=== PATIENT | female | born 1965 | race Caucasian/White ===

== ENCOUNTER 2025-04-21 12:35 | Emergency (ER) | payer OTHER, SELFPAY ==
[2025-04-21 12:37] VITALS: BP 148/101; PULSE 91; RESP 18; TEMP 36.1; O2SAT 100
[2025-04-21 13:15] VITALS: BP 130/80; PULSE 80; O2SAT 100
--- NOTE | 2025-04-21 13:33 | EKG12_ITS ---
Test Reason : Blood Pressure : */* mmHG Vent. Rate : 78 BPM Atrial Rate : 78 BPM P-R Int : 140 ms QRS Dur : 84 ms QT Int : 398 ms P-R-T Axes : 45 -6 23 degrees QTcB Int : 453 ms Normal sinus rhythm Normal ECG Confirmed by LINUS NUNN, BARB ([id number]), science editor NELSON TRAVIS ([id number]) on 04/22/2025 8:47:17 AM Referred By: Confirmed By: BARB BARRIGA MD
[2025-04-21 13:49] LABS: Hematocrit 41.7 % (37-47); Hemoglobin 14.0 g/dL (12.0-15.0); Immature Granulocytes Count 0.020 X10^3/uL (0.0-0.0); Mean Corp Hgb Conc 33.6 g/dL (32-36); Mean Corpuscular Volume 84.4 fL (81-99); Mean Platelet Vol. 12.8 fl (6.2-12.0); NRBC Flagged by Analyzer 0 % (0-5); Platelet Count 225 K/mm3 (150-450); RBC Distribution Width CV 12.9 % (11.6-14.6); RBC Distribution Width SD 39.6 fl (35.1-43.9); Red Blood Count 4.94 M/mm3 (4.2-5.4); White Blood Count 7.5 K/mm3 (4.4-11.0)
[2025-04-21 14:22] LABS: Mucous, Urine 0 SEEN /hpf (<or=2+)
[2025-04-21 14:39] LABS: AST(SGOT) 38 U/L (<=31); Alanine Aminotransfer ALT/SGPT 48 U/L (<=34); Albumin, Serum 4.1 g/dL (3.4-4.8); Alkaline Phosphatase 29 U/L (35-104); Anion Gap 12 (5-15); BUN 15 mg/dL (4-19); BUN/Creat Ratio 24.1 RATIO (10-20); Calcium,Total 9.6 mg/dL (7.6-11.0); Carbon Dioxide 22.6 mmol/L (21.0-32.0); Chloride 105 mmol/L (98-108); Globulin 2.7 g/dL (2.2-4.2); Glucose 103 mg/dL (70-99); Potassium 3.8 mmol/L (3.3-5.1)
[2025-04-21 14:44] LABS: Color, Urine Yellow (Yellow); Glucose, Dipstick Normal (Normal); Ketone-Dipstick Negative (Negative); Leukocyte Esterase-Dipstick Negative /ul (Negative); Nitrite-Dipstick Negative (Negative); Occult Blood-Urine 10 /ul (Negative); Protein-Dipstick 15 mg/dl (Negative); Specific Gravity, Urine 1.020 (1.002-1.030); Urine Bilirubin Dipstick Negative (Negative)
[2025-04-21 15:00] VITALS: BP 128/78; PULSE 80; O2SAT 100
[2025-04-21 15:32] LABS: Troponin T High Sensitivity 7 ng/L (<=14)
[2025-04-21 15:34] LABS: Squamous Epithelial Cells - UA 5-10 SEEN /hpf (5-10)
[2025-04-21 15:37] LABS: Red Blood Cells-Urine 0-5 SEEN /hpf (0-5)
--- NOTE | 2025-04-21 16:49 | EDS_ITS ---
HPI History of Present Illness Chief Complaint: Confusion Informant: patient Narrative Narrative: Patient is a 59-year-old female with history of hypertension and anxiety presented with worsening confusion, generalized weakness and dizziness. States her mother in mid March (approximately a month ago). She reported tenuous relationship with her mother and has had a hard time dealing with. She states this morning she was so weak that she felt she was going to . The past week she has only been sleeping and has not been eating much. Has been drinking lots of water. She denies any abdominal pain. She denies any thoughts of self-harm but is afraid that if she does sleep that she will . 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 Her was able to convince her to take her citalopram this morning. She is not taking her citalopram or valsartan. Denies any auditory visual hallucinations but has had a hard time concentrating. Patient is with her daughter initiated that her is also at the bedside. Patient also reports that she cold turkey stop smoking, stopped caffeine, THC and alcohol. She notes that she has not had a drink in 2 weeks. She denies heavy drinking before and states to just drink intermittently. PFSH PFSH Medical History no medical history Allergy/AdvReac Type Severity Reaction Status Date / Time azithromycin (From z-pack) Allergy Unknown Other Verified 04/21/25 12:37 Family History no significant family his Surgical History no surgical history Social History Smoking Status: Current every day smoker tobacco type: cigarettes ROS ROS ED Constitutional Constitutional ED: Reports other Details: Poor appetite, insomnia ; Denies chills or fever(s) Eyes Eyes: Denies change in vision Cardiovascular Cardiovascular: Reports chest pain and other Details: Reports prior chest pain?denies any now Respiratory/Chest Respiratory/Chest: Denies cough or dyspnea Musculoskeletal Musculoskeletal: Denies arthralgias or myalgias Integumentary Denies rash Neurologic Neurologic: Reports paresthesias, weakness and other Details: Prior tingling to her bilateral feet?states she was concerned she was having a stroke ; Denies headache(s) Psychiatric Psychiatric: Reports anxiety and depression; Denies suicidal ideation or suicidal thoughts Hematologic/Lymphatic Hematologic/Lymphatic: Denies easy bleeding or easy bruising EXAM Physical Exam Const Vital Signs: 04/21/25 12:37 04/21/25 13:15 04/21/25 13:15 Temperature 96.9 F L Temperature Source Oral Pulse Rate 91 80 Respiratory Rate 18 Respiratory Effort Normal Non-Labored Respiratory Pattern Normal Blood Pressure 148/101 H 130/80 H Blood Pressure Mean 116 96 Pulse Ox 100 100 Oxygen Delivery Method Room Air 04/21/25 15:00 Temperature Temperature Source Pulse Rate 80 Respiratory Rate Respiratory Effort Respiratory Pattern Blood Pressure 128/78 H Blood Pressure Mean 94 Pulse Ox 100 Oxygen Delivery Method Positive well nourished and well developed General Appearance ED: well developed and NAD HEENT Reports moist mucous membranes Negative for trauma Eyes PERRL and EOMs intact bilaterally Neck supple and no JVD Neck Narrative: No meningeal signs Chest Wall inspection of chest normal Resp normal respiratory effort and clear to auscultation bilaterally Cardio regular rate and regular rhythm GI normal to inspection, nondistended, normoactive bowel sounds Extremity normal to inspection Extremity Narrative: Varicose vein of the right posterior calf. Soft, no overlying redness or infectious symptoms General Extremety ED: Negative for edema General Extremity: Negative for edema Neuro oriented x3 and CN's II-XII intact bilaterally Sensorium / Orientation: alert Motor Exam: Negative for general weakness Psych Psych Narrative: Labile mood. No auditory visual hallucinations. She does have slightly manic speech and jumps topic a lot but does come back to initial topic and is able to answer questions eventually. Is insightful about what is going on. Mood & Affect: depressed, anxious and tearful Skin no rashes or lesions noted and no wounds MDM MDM MDM Narrative Medical decision making narrative: Patient evaluated for multiple vague complaints including weakness, confusion and dizziness. She has been as her mother whom sounds like she had a very difficult relationship with about a month ago and the seems of triggered her symptoms. Differential includes psychosis, depression, hyponatremia, encephalopathy/infection (lower suspicion is to report any fevers), hyperthyroidism, urinary tract infection. She does report prior chest pain as well as obtain EKG and troponin looking for signs of ACS or arrhythmia. No focal neurologic deficits I do not think she requires a CT of the brain. She reports bilateral tingling of her feet but that does not sound like a stroke I do not think she needs CT of the brain. Patient is also in agreement with this. Does see that patient has a lot of family support at home. Her workup shows a normal CBC. Her CMP shows a very mild transaminitis. There is nothing that is consistent with any acute metabolic process however. Her urinalysis is most consistent with contamination but there is 2+ bacteria. Will send off her urine culture I do not think she requires antibiotics for this at this time. TSH is quite low at 0.179. Will add on T3-T4. Possible that thyroid abnormality could be causing her symptoms. Patient is evaluated social welfare research worker in the ER as well. We are in agreement that patient likely does have some underlying psychiatric condition but due to her lack of HI/SI and strong outpatient social supports feel that she is a good candidate for outpatient treatment. Will be given resources for intensive outpatient. And I am amenable to prescribing an anxiolytic/sleep aid for the short-term. Family feels comfortable monitoring this and dispensing it. Patient signed out to oncoming physician pending T3-T4 results. If these are grossly abnormal patient likely will require discussion with endocrinology. Lab Data Attestation: I reviewed the patient's lab results. Labs: Laboratory Results - last 24 hr 04/21/25 04/21/25 04/21/25 13:07 13:57 14:20 WBC 7.5 RBC 4.94 Hgb 14.0 Hct 41.7 MCV 84.4 MCH 28.3 MCHC 33.6 RDW Std Deviation 39.6 RDW Coeff of Soraya 12.9 Plt Count 225 MPV 12.8 H Immature Gran % (Auto) 0.300 Neut % (Auto) 55.7 Lymph % (Auto) 33.2 [place] % (Auto) 8.0 Eos % (Auto) 1.9 Baso % (Auto) 0.9 Absolute Neuts (auto) 4.2 Absolute Lymphs (auto) 2.50 Nucleated RBC % 0 Sodium Cancelled 140 Potassium Cancelled 3.8 Chloride Cancelled 105 Carbon Dioxide Cancelled 22.6 Anion Gap Cancelled 12 BUN Cancelled 15 Creatinine Cancelled 0.61 L Estim Creat Clear Calc Cancelled Est GFR (MDRD) Non-Af Cancelled 102 BUN/Creatinine Ratio Cancelled 24.1 H Glucose Cancelled 103 H Calcium Cancelled 9.6 Total Bilirubin Cancelled 0.42 AST Cancelled 38 H ALT Cancelled 48 H Alkaline Phosphatase Cancelled 29 L Troponin T High Sens 7 Total Protein Cancelled 6.8 Albumin Cancelled 4.1 Globulin Cancelled 2.7 Albumin/Globulin Ratio Cancelled 1.5 TSH Cancelled 0.179 L Urine Color Yellow Urine Clarity Sl. Cloudy Urine pH 6.0 Ur Specific [place] 1.020 Urine Protein 15 H Urine Glucose (UA) Normal Urine Ketones Negative Urine Occult Blood 10 H Urine Nitrite Negative Urine Bilirubin Negative Urine Urobilinogen Normal Ur Leukocyte Esterase Negative Urine RBC 0-5 SEEN Urine WBC 0-5 SEEN Ur Squamous Epith Cells 5-10 SEEN Amorphous Sediment 1+ Urine Bacteria 2+ Urine Mucus 0 SEEN Rhythm Strip Rhythm Strip: Sinus Rhythm Rate: 78 Ectopy: None EKG Initial EKG: Attestation: I personally reviewed and interpreted this EKG as follows: Interpretation: Sinus Rhythm Comments: Normal sinus rhythm rate of 78 bpm Normal axis Normal intervals Normal ST segments Discharge Plan Triage Chief Complaint: Confusion Other Complaint: Weakness ED Provider: Teodora Alberto Dx/Rx/DC Orders Primary Care Provider: Jhon Torres Referrals: Jhon Torres MD [Primary Care Provider] - Print Language: Malian
[2025-04-21 17:00] VITALS: BP 128/70; PULSE 80; O2SAT 100
[2025-04-21 17:14] VITALS: BP 127/98; BP 130/100; BP 147/96; PULSE 77; PULSE 85; PULSE 95
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
[2025-04-21 17:23] LABS: Free T3 4.3 pg/mL (2.18-3.98)
[2025-04-21 18:03] LABS: Troponin T High Sens 2 HR 7 ng/L (<=14)
[2025-04-21 18:09] VITALS: BP 128/70; PULSE 80; RESP 18; TEMP 36.6; O2SAT 100
--- NOTE | 2025-04-22 15:27 | CM.ED ---
Social Work SW contacted patient as a follow up from yesterdays ED visit and care plan. Patient has just finished her admission assessment at [facility]. Patient was extremely positive about her next steps and was thankful for the services provided. Patient became tearful and stated this is the first time she has felt safe in many years and was so thankful for the help. SW encouraged patient to call or come back to the ED should she feel she needs additional assistance. No further needs identified at this time. Adenike Zayas, MERCANTILE AGENT, ACOUSTIC WARFARE ANALYST
== END 2025-04-21 18:09 | disposition home or self-care (01) ==
PROVIDERS: Emergency Provider Emergency Medicine; PCP Family Medicine; Visit Provider Emergency Medicine
DX: R41.0 Disorientation, unspecified (principal); R53.1 Weakness; Z87.891 Personal history of nicotine dependence; I10 Essential (primary) hypertension
CPT/HCPCS: 80053; 81001; 84439; 84443; 84481; 84484; 85025; 93005; 99284; A4216

== ENCOUNTER 2025-05-01 13:25 | Outpatient (RCR) | payer OTHER, SELFPAY ==
--- NOTE | 2025-05-01 15:15 | BH.MDN ---
Multi-Disciplinary Note Note 60-min Individual: Time Started:: 14:00 Date: 05/01/25 Purpose of session/treatment goals addressed:: Purpose of session was to complete paperwork, review any changes in symptomology, as well as determine appropriateness for group setting. Eye Contact:: Good Motor Activity:: Restless Appearance:: Casual Speech:: Pressured, Tangential and Rambling Mood:: Euthymic and Irritable Affect:: Labile Thoughts:: Racing and Flight of ideas Staff Interventions:: motivational interviewing, rapport building, completed risk assessment / safety planning (cssrs assessment) and other (assessed for group appropriateness, basic hx gathering) Client Response:: Pt receptive of session, engaged at times but often easily distracted by own thoughts/ideas. Pt struggled significantly with remaining on topic and completing paperwork throughout session. Pt?s present and often provided collateral information or discredited pt?s statements during the interview. Pt fixated on a romi she brought in with her and often assigned varying significance to it, for example stating that it represents the day her sister was born or was a sign that she is going to get the help she needs. Pt?s reports her sx started ~3.5 weeks ago after learning on social media that her mother had and pt was written out of the will. Shares that they had been estranged for 14 years after pt?s mother minimized pt?s new breast cancer diagnosis. At that time, pt attempted to gather more information from her sister whom she is also estranged from however this did not go over well and ended in conflict. Pt provided some information throughout information gathering but would often interrupt with illogical statements or observations. Pt?s reports that pt has not been eating unless told to do so, is sleeping about 3-5 hours a night but often wakes up and wanders outside, has been recounting past trauma, is starting multiple projects around the house and often gets distracted. Noted that pt is usually very clean and organized but has been scattered the past month. Shared that she impulsively bought a new car and phone as well. Reports this change in pt?s behaviors has been difficult on him physically and emotionally. His adult children have been stopping by to help when possible. Given pt?s erratic behavior she is not going to begin the group portion of tx until more stabilized. Will meet with program psychiatrist with her and daughter tomorrow morning and follow-up from there next week to assess stability. Risks/Concerns:: Pt denies suicidal ideation, plan, or intent as of this date. Symptoms of irritability, senthil, and possible psychosis do however appear to be more severe than at initial intake. Varying ability to focus. Pt family is looking after her due to sx severity. She is scheduled for psychiatry tomorrow morning to further determine appropriateness. Progress Toward Goals/Plan:: No progress noted as it is pt's first day in tx and this session was focused on information gathering and assessing current sx. Pt had significant difficulties in maintaining focus throughout. Pt present throughout and reports pt sx have been worsening. Pt endorsing labile mood, racing thoughts, pressured speech, starting multiple tasks, impulsivity, lack of sleep, grandiose thoughts, and some auditory hallucinations. Pt reports sx have been ongoing for the past month. Denies wanting pt to be hospitalized and pt is adamant against this. Reports he will be able to aid in maintaining safety until pt meets with program psychiatrist tomorrow to discuss plan of tx further. Time Stopped:: 15:00
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
--- NOTE | 2025-05-02 07:57 | BH.DR.ITP ---
Initial Treatment Plan Patient Information Visit Information: ADMISSION DATE: 05/02/2025 EXPECTED LOS: 4-6 weeks Problems/Symptoms Problem #1:: Sandy Symptom:: grandiosity, flight of ideas, delusional thought, poor sleep, agitation Symptom:: anxiety Problem #2:: restlessness, nervousness
== END 2025-05-04 23:59 ==
LOC: BHIOP 13:25
PROVIDERS: PCP Family Medicine; Referring Provider Student in an Organized Health Care Education/Training Program; Visit Provider Student in an Organized Health Care Education/Training Program
DX: F31.64 Bipolar disorder, current episode mixed, severe, with psychotic features (principal)
CPT/HCPCS: S9480; 90837

== ENCOUNTER 2025-05-29 08:00 | Outpatient (RCR) | payer OTHER, SELFPAY ==
--- NOTE | 2025-05-29 10:15 | BH.SGPN.GN ---
Behaviors/Verbalizations/Mental Status: [] Eye contact is good. Motor activity is appropriate. Appearance is casual. Speech is Appropriate. Mood is dysthymic. Affect is congruent. Thoughts are linear and logical. No evidence of psychosis. Client Response/Progress/Benefit: [] Client engaged during group session as evidenced by contributions during group discussions, appearing to listen to others, and taking notes. Client engaged in discussion about barriers that keep people from having difficult conversations. Group identified potential reasons individuals avoid difficult conversations which included; feeling uncomfortable, reaction of others, fear, and avoiding conflict. Group also identified benefits to having crucial conversations. Pt identified things they do that impact their communication as mind reading or shutting down. Client seemed to benefit from increased awareness and education about importance of having difficult conversations and recognizing the impact of avoiding such conversations. Client to continue IOP to prevent decompensation, increase healthy coping, and improve functioning. Narrative Note: []
--- NOTE | 2025-05-29 11:15 | BH.SGPN.GN ---
Behaviors/Verbalizations/Mental Status: []Pt alert and oriented, neatly dressed and groomed. Eye contact good. Motor activity appropriate. Speech within normal limits. Affect constricted, mood euthymic and anxious. Thoughts linear, logical, no signs of hallucinations or delusions. Client Response/Progress/Benefit: [] Pt was an active participant, engaged in activities and discussion. Pt able to identify ways they negatively contribute to crucial conversations and pt was engaged during psychoeducation of the different ways to build interpersonal effectiveness skills. Pt and peers practiced mirroring and active listening in partners. Group reviewed [employer] and used the handout to help map out how they would like a crucial conversation in their life to go. Pt shared that she benefited from learning the challenges of putting off conversations and how this causes more stress. Pt appeared to benefit from learning and practicing interpersonal effectiveness skills. Pt will continue IOP tx to prevent decompensation, improve distress tolerance, and improve daily functioning. Narrative Note: []
--- NOTE | 2025-05-29 15:22 | BH.MDN ---
Multi-Disciplinary Note Note 45-min Individual: Time Started:: 09:00 Date: 05/29/25 Purpose of session/treatment goals addressed:: To gather information on pt's current stressors, symptoms, triggers, history, and tx goals. Another goal was to build rapport and provide emotional support. Eye Contact:: Good Motor Activity:: Appropriate Appearance:: Neat and Casual Speech:: Appropriate Mood:: Anxious Affect:: Congruent Thoughts:: Linear, Logical and No evidence of hallucinations/delusions noted Staff Interventions:: motivational interviewing, psychoeducation on: (ACES), rapport building, strengths perspective and treatment planning Client Response:: Pt responded well to session, open to meeting with therapist. Pt shared that since d/c from inpatient hospitalization she has felt more stable and capable of managing her emotions. Noted some continued struggles with concentration, forgetfulness, and sleep. Pt went on to describe shame and embarrassment surrounding her recent manic episode, noting the most difficult aspect is not remembering what she did or said during the episode. Pt went on to indicate that fear of losing her memory and struggling with cognition is a major stressor of hers as she is a very independent person. Expressed struggling with depending on others and has been having a hard time with her family?s ongoing concerns since hospital d/c. Pt explained that her only just now let pt drive independently and that she feels her adult children and have been monitoring her every mood since d/c. Pt reports understanding their concern and is grateful for the support, but would like to get back to feeling like herself. She is now connected with Dr. Ocasio at [facility] for outpatient medication management; however, does not have an individual outpatient counselor. While in IOP tx, pt reports that she would like to understand how her past childhood trauma is impacting her as an adult, address ?severe abandonment issues? and how these manifest in current relationships, as well as work on understanding and managing bipolar related sx. Pt receptive to treatment planning including psychoeducation on adverse childhood experiences. Risks/Concerns:: Pt denies any suicidal ideation, plan, or intent. Pt denies any thoughts of . Progress Toward Goals/Plan:: Pt's first day of IOP tx and pt shared looking forward to learning new skills. Pt shared she enjoys listening to peers talking about their own experiences. Pt stated she wants to work on understanding trauma and attachment and better coping with her mental health sx. Pt and therapist discussed goals to help pt get back to her usual functioning and improve mood stability. Pt will continue IOP tx to gain healthy coping skills, improve daily functioning, and increase distress tolerance. Time Stopped:: 09:40
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
--- NOTE | 2025-05-30 07:37 | BH.DR.ITP ---
Initial Treatment Plan Patient Information Visit Information: ADMISSION DATE: 05/30/2025 EXPECTED LOS: 4-6 weeks Problems/Symptoms Problem #1:: Sandy Symptom:: delusional thought, hyperactivity, racing thoughts Problem #2:: anxiety Symptom:: nervousness, restlessness, changes in sleep pattern
--- NOTE | 2025-05-30 09:05 | BH.SGPN.GN ---
Behaviors/Verbalizations/Mental Status: [] Eye contact is good. Motor activity is appropriate. Appearance is casual. Speech is Appropriate. Mood is euthymic. Affect is full. Thoughts are linear and logical. No evidence of psychosis. Reviewed daily check in sheet and pt denies SI, plan, or intent as of this date 05/30/25. Client Response/Progress/Benefit: [] Pt was an active participant in group discussions. Attentive. Daily symptom tracker notes 1/5 for anxiety and 0/5 for depression, pt positive throughout check-in. Did well to identify 2 mental health wins, which included being here and more stable than when trying to begin the program a month ago. Expressed gratitude for her family for the support while experiencing a manic episode. Additional win noted as purchasing a trike to begin exercising more often;however, noted this is also a stressor as she is worried she will fall and injure herself. Appeared to benefit from provided support, encouragement, and feedback. Will continue IOP tx to improve mood stability, develop healthy coping repertoire, and prevent decompensation. Narrative Note: []
--- NOTE | 2025-05-30 10:10 | BH.SGPN.GN ---
Behaviors/Verbalizations/Mental Status: []Eye contact is good. Motor activity is appropriate. Appearance is casual. Speech is Appropriate. Mood is content. Affect is congruent. Thoughts are linear and logical. No evidence of psychosis. Client Response/Progress/Benefit: []Pt was an active participant in group discussion. Engaged and attentive during psychoeducation and interactive discussion on coping skills, why people use unhealthy coping skills, how to replace unhealthy coping skills, and internal vs external coping skills. Attentive as peers came up with list of unhealthy coping skills. Pt reported personally, they tend to either distract or avoid. Group discussed the effects of maladaptive coping skills on mental health. Benefited from increased understanding of unhealthy coping skills and the need for developing healthy internal and external coping skills. Actively participated during experiential group activity and was able to related this activity to group topic. Will continue in IOP to promote healthy thinking patterns, apply healthy coping skills, and promote mood stability. Narrative Note: []
--- NOTE | 2025-05-30 11:00 | BH.NA_ITS ---
Physical Data Vital Signs Pulse Rate: 67 Blood Pressure: 143/101 (client states she has not taken her Losartan today yet) Height/Weight Height: 1.75 m Weight:: 100.244 kg Weight in Pounds: 221.0 lbs Current Medication Compliance Medication Compliance Do you take your medication as prescribed?: Yes Functional Assessment Sleep Pattern Describe any problems with sleeping: Client states she has been sleeping about 6.5 hours per night. Sensory/Communication Assess Vision Problems Do you have any vision problems?: Glasses Communication Problems Do you have difficulty understanding what people are saying?: No Medical Problems/History Cardiac Conditions Cardiovascular: Hypertension Gastrointestinal Conditions Gastrointestinal: Other (See comments) (GERD) Cancer History Type of Cancer:: Breast (lumpectomy and chemo and radiation 4886-1606) Family History Family History (Updated 05/19/25 @ 10:52 by Ivory Robles) Mother Suicide attempt Other Anxiety Arthritis Cancer Heart disease Hypertension Mental disorder Myocardial infarction Surgical History Surgical History Have you had any surgeries? If so, list type and date:: Yes (lumpectomy, PAC placement, , bilat TKR, uterine fibroid, nose x 2) Mental Status Summary Mental Status Significant Findings/Observations on Appearance and Mood:: Client is alert and oriented x 4. Client is casually groomed with good hygiene. Client is cooperative with assessment. Client makes good eye contact. Client's voice has normal rate and volume. Client has appropriate affect. Client makes logical associations and has normal processing. Client denies delusions/hallucinations. Client denies SI. Suicide Assessment Suicidal Ideation Are you currently or have you been suicidal in the past?: Yes Suicidal Intentional Rating Scale (SIRS): Suicidal thoughts (past) Physician Notification Past Psychiatric History MH Treatment Hx Past Psychiatric Medications:: Wellbutrin in her 30's Age of first mental health symptoms: Client states she first had depression in her 30's. Client states she was just recently diagnosed with bipolar 1 after a 6 week long maniac episode, but states she thinks she may have had a maniac episode a few years ago. Describe (age, circumstance, etc) any past hospitalizations: [facility] - 05/02 - 05/07/25 for senthil Current providers for mental health treatment (counselor, psychiatrist, sample case porter, etc.): Dr. Ocasio for psychiatry Fall Risk Assessment Age Age: 60-70 Mental Status Mental Status: Willing & able to ask for assistance when needed Physical Status Physical Status: No problems Impairments Impairments: None Elimination Elimination: Continent AND independent Gait or Balance Gait or Balance: Walks independently Hx of Falls History of falls in the past 6 months: No known history Medications/Substances Psychotropics:: Antidepressants and Antipsychotics Others:: Antihypertensives Medications/substances used within the past 24 hours or ordered to administer: 3 or more of the medications/substances listed above Total Score Total Points:: 3 RN Summary of Impressions Impressions Recommendations Impressions: Psychiatric Issues: hx bipolar 1 disorder with mood-congruent psychotic features (no psychotic features at this time), anxiety unspecified Level of Care How do the client's current symptoms and functional deficits support need for this level of care?: Client did an intake at [facility] and was to begin the program 05/01/25 but due to senthil/delusional thinking did not meet criteria. Client was then hospitalized at [facility] 05/02 - 05/07/25 and comes back to [facility] at this time on mental health medication and able to do program. Client states she believes this senthil episode was triggered by the of her estranged mother and the situation this caused between the client and her estranged sister. Client also states the state of the world (environment, political, etc) made her stop her mental health medications. Client is currently on Zyprexa at this time and denies delusions/hallucinations. Client denies SI. [facility] will promote gains and prevent further decompensation while providing social support and skills training. Nutritional Screen Height/Weight Height: 1.75 m Weight:: 100.244 kg Weight in Pounds: 221.0 lbs Nutrition Screening Normal Weight: 97.522 kg Normal/Usual Weight in Pounds: 215.0 lbs Have you lost weight without trying: No Have you been eating poorly because of a decreased appetite: No Recently been on tube feeds, TPN, or have any nutritional access device in place: No Have any large open wounds or wounds that are not healing: No Calculated Weight Change: [id number] Change in weight Score: 1 MST Screening Tool Score: 1 *Automatic Nutrition referral for a score of 2 or greater.*: Client states Zyprexa has been increasing weight gain, states she has gained probably 7lbs in the last couple of weeks.
--- NOTE | 2025-05-30 11:10 | BH.SGPN.GN ---
Pt alert and oriented, casual in appearance. Eye contact good. Motor activity appropriate. Speech within normal limits. Affect constricted, mood content. Thoughts linear, logical, no signs of hallucinations or delusions. Client Response/Progress/Benefit: [] Pt engaged in group discussions and was attentive AEB taking notes, and listening attentively to others. Group discussed the different categories of coping skills which included distraction, emotional release, grounding, self-love, and thought challenging. Pt participated in creating a coping skills ?menu? from the different categories of coping skills. Pt's coping skill menu included: photography, TIPP skill, 5-senses, and affirmations. Appeared to benefit from increasing repertoire of healthy coping skills. Will continue IOP to improve mood stability, improve healthy coping, and prevent decompensation. Narrative Note: []
[2025-05-30 12:23] VITALS: BP 143/101; PULSE 67
--- NOTE | 2025-06-02 09:00 | BH.SGPN.GN ---
Behaviors/Verbalizations/Mental Status: [] Pt alert and oriented, Neatly dressed and groomed. Eye contact good. Motor activity appropriate. Speech within normal limits. Affect congruent, mood calm. Thoughts linear, logical, no signs of hallucinations or delusions. Reviewed pt?s symptom tracker, no risk for suicidal ideation, plan, and intent 06/02/25. Client Response/Progress/Benefit: []Pt was an active participant in group discussions. Attentive. Per patients daily symptom tracker, pt indicates a 0/5 for depression and a 0/5 for anxiety, with 5 being severe. Pt reported mental health wins as feeling more regulated with her emotions, and that she was able to identify the signs that contributed to her last manic episode so that she can possibly prevent another one. She reported her stressor as struggling with memory loss during her last manic episode. She stated feeling anxious because she does not remember what she did or said after a certain period of time. Pt was supportive and attentive to others in the group. Pt seemed to benefit from support from peers. Pt voluntarily discharged from [facility] after first group on 06/02/25 stating that she felt that she had made progress and no longer needed [facility] services.
--- NOTE | 2025-06-02 14:50 | BH.DS ---
Discharge Summary Demographics Date of Admission:: 05/29/25 Discharge Date: 06/02/25 Presenting Problems at Admission:: Patient was recently admitted to [facility] for psychiatric admission after demonstrating symptoms of senthil/psychosis upon original [facility] intake evaluation. Patient had been experiencing lack of sleep and increase in delusional thought which started after the of her estranged mother approximately 2 months ago. Patient does not have very good memory of entire time when she was manic. Does feel like family has been watching her on higher alert, but she feels like behavior is getting back to normal. Does continue to endorse some irritability, anxiety, difficulties concentrating, and poor sleep. Discharge Diagnoses:: Bipolar 1; Anxiety Disorder, unspecified. Reason for Discharge:: Pt voluntarily discharged from [facility] tx as pt reports feeling that group is not the right fit for her and she would benefit more from individual outpatient treatment, specifically geared towards working on trauma. Pt has stabilized since inpatient psychiatric admission on 05/03/25 and therapist is in agreement to pt stepping down to outpatient level of care at this time. Did encourage pt to reach out should she require more intensive services in the future. Treatment Progress During Treatment & Response: No significant clinical progress has been observed during the past week, as this is only pt?s 3rd day in [facility] tx. While she has found IOP to be beneficial in terms of support and psychoeducation, she reports belief her needs will be better met on the outpatient level. Pt was engaged and an active participant when in attendance. Issues Still to be Addressed:: continued mood stabilization, trauma specific treatment Discharge Recommendations/Instructions:: Pt provided with outpatient therapy options and encouraged to reach out for an intake appointment. The patient is also currently linked with psychiatry through [facility] and has a scheduled appointment for 06/16/25. Discharge Handout
== END 2025-06-02 10:04 | disposition home or self-care (01) ==
LOC: BHIOP 08:00
PROVIDERS: PCP Family Medicine; Referring Provider Student in an Organized Health Care Education/Training Program; Visit Provider Student in an Organized Health Care Education/Training Program
DX: F31.9 Bipolar disorder, unspecified (principal); F41.9 Anxiety disorder, unspecified
CPT/HCPCS: S9480; 90834; 90853